=== PATIENT | male | born 1950 | race Caucasian/White ===

== ENCOUNTER 2019-04-07 12:16 | Emergency (ER) | payer MEDICARE ==
[2019-04-07 12:30] VITALS: BP 125/83
--- NOTE | 2019-04-07 12:35 | ED Physician Documentation ---
PD HPI SKIN - Stated complaint Stated Complaint: BACK WOUND - Chief complaint Chief Complaint: Wound - History obtained from History obtained from: Patient - History of Present Illness Timing - onset: Other (He is always had a painless lump on his back but never really bothered him. He saw his doctor for it, they were advised him to leave it alone. Over the last couple of weeks after scraping it on something its become increasingly painful and red. No fevers or chills.) Review of Systems Constitutional: denies: Fever, Chills GI: denies: Abdominal Pain, Nausea, Vomiting Musculoskeletal: denies: Neck pain, Back pain PD PAST MEDICAL HISTORY - Past Medical History Past Medical History: No Cardiovascular: None Respiratory: None Neuro: None Endocrine/Autoimmune: None GI: None : None HEENT: None Psych: None Musculoskeletal: None Derm: None - Past Surgical History Past Surgical History: No - Present Medications Home Medications: Ambulatory Orders Medication Instructions Recorded Confirmed Cephalexin [Keflex] 500 mg PO Q6H #40 capsule 04/07/19 - Allergies Allergies/Adverse Reactions: Allergies Allergy/AdvReac Type Severity Reaction Status Date / Time No Known Drug Allergies Allergy Verified 04/07/19 12:24 - Social History Does the pt smoke?: Yes Smoking Status: Current every day smoker Does the pt drink ETOH?: Yes ETOH Use: Beer Does the pt have substance abuse?: No - Immunizations Immunizations are current?: No Immunizations: TDAP >10years/unknown - POLST Patient has POLST: No PD ED PE NORMAL - Vitals Vital signs reviewed: Yes - General General: Alert and oriented X 3, No acute distress - Derm Derm: Other (He is a large sebaceous cyst with infection over the back, just to the left of the thoracic spine in the middle. There is mild surrounding cellulitis. The cyst is about 5 cm in diameter.) - Neuro Neuro: Alert and oriented X 3, Normal speech Results - Vitals Vitals: Vital Signs - 24 hr 04/07/19 12:19 Temperature 36.1 C L Heart Rate 56 L Respiratory 16 Rate Blood Pressure 125/83 H O2 Saturation 97 Oxygen O2 Source Room air Procedures - Abscess I&D (location) back sebaceous cysst Preparation: Alcohol, Lidocaine 1% Incision: Incised with scalpel, Purulent drainage, Loculations broken, Culture obtained, Other (Lenticular incision was made to keep it open. A lot of sebaceous material was removed, I was also able to get bits of the cyst itself, but I do not think I got all of it given that it was actively inflamed and quite large.). No: Packed Other: Pt tolerated well, Dressing applied, Antibiotic prescribed Departure - Departure Disposition: Home, Self Care Clinical Impression: Infected sebaceous cyst Condition: Good Record reviewed to determine appropriate education?: Yes Instructions: ED Abscess IandD Follow-Up: Samuel Spaulding MD [Provider Admit Priv/Credential] - Prescriptions: Cephalexin [Keflex] 500 mg PO Q6H #40 capsule Comments: As discussed, these tend to recur after a drainage procedure when they are infected. You can follow-up with the surgeon listed on this form for definitive excision after it is all healed up if there is a persistent lump. We are performing a wound culture, the results should be done in 48-72 hours. If antibiotic change is necessary we will call you. Return if worse in the meantime, especially if you develop increased pain, fevers, cannot keep down the medication. Otherwise follow-up with your physician in approximately 2-3 days.
== END 2019-04-07 13:02 | disposition home or self-care (01) ==
LOC: ED 12:16
DX: L72.3 Sebaceous cyst (principal); L02.212 Cutaneous abscess of back [any part, except buttock and flank]; F17.200 Nicotine dependence, unspecified, uncomplicated
CPT/HCPCS: 10060; 87070; 87205

== ENCOUNTER 2021-03-22 16:11 | Outpatient (CLI) | payer MEDICARE | END 2021-03-22 16:12 | disposition home or self-care (01) | LOC: RT 16:11 | PROVIDERS: ATTEND Surgery | DX: R00.9 Unspecified abnormalities of heart beat (principal); F17.200 Nicotine dependence, unspecified, uncomplicated | CPT/HCPCS: 93005 ==

== ENCOUNTER 2021-04-04 11:47 | Day surgery (SDC) | payer MEDICARE ==
[~2021-04-04 11:47] MED LIST: CEFAZOLIN SODIUM IN 0.9 % NACL 2 GM/100 ML BAG IV ONE
[2021-04-04] MEDS ORDERED: LACTATED RINGERS 1,000 ML IV ONE ×2 (11:55→15:01)
--- NOTE | 2021-04-04 12:43 | ANESTHESIA ---
Pre-Anesthesia VS, & Labs - Diagnosis Left Inguinal hernia - Procedure Left inguinal hernia repair with mesh Vital Signs: Temp Pulse Resp BP Pulse Ox 36.6 C 69 16 161/74 H 97 04/04/21 11:57 04/04/21 11:57 04/04/21 11:57 04/04/21 11:57 04/04/21 11:57 Height: 6 ft Weight (kg): 74 kg Body Mass Index: 22.1 BMI Classification: Healthy weight - NPO >8 hours Home Medications and Allergies Home Medications: Ambulatory Orders No Known Home Medications 03/27/21 No Known Home Medications 03/27/21 Allergies/Adverse Reactions: Allergies Allergy/AdvReac Type Severity Reaction Status Date / Time No Known Drug Allergies Allergy Verified 04/07/19 12:24 Anes History & Medical History - Anesthetic History Family history of Anesthesia Complications: Denies Family history of Malignant Hyperthermia: Denies - Medical History Cardiovascular: reports: None Pulmonary: reports: None Gastrointestinal: reports: GERD Urinary: reports: None Neuro: reports: None Musculoskeletal: reports: None Endocrine/Autoimmune: reports: None Blood Disorders: reports: None Skin: reports: None Smoking Status: Current every day smoker (10 cigarettes per day. Off and on for 30 years) Psychosocial: reports: Alcohol (Daily 2-3 beers per day), Cannabis History of Cancer?: No - Surgical History General: reports: Colonoscopy Orthopedic: Exam General: Alert, Oriented x3, Cooperative, No acute distress Dental: Poor dentition Mouth Openin Fingerbreadth Neck Mobility: Normal Mallampati classification: II Thyromental Distance: 4-6 cm Respiratory: Lungs clear, Normal breath sounds, No respiratory distress, No accessory muscle use Cardiovascular: Regular rate, Normal S1, Normal S2, No murmurs Mental/Cognitive Status: Alert/Oriented X3, Normal for patient Plan Anesthesia Type: General Consent for Procedure(s) Verified and Reviewed: Yes Code Status: Attempt Resuscitation ASA classification: 2-Mild systemic disease Is this case an emergency?: No
[2021-04-04] MEDS ORDERED: ONDANSETRON 4 MG/2 ML VIAL IVP PRN (12:45)
[2021-04-04] MEDS ORDERED: fentaNYL 100 MCG/2 ML VIAL IVP PRN (12:45)
[2021-04-04] MEDS ORDERED: ATROPINE ABBOJECT 1 MG/10 ML SYRINGE IVP PRN (12:45)
[2021-04-04] MEDS ORDERED: MORPHINE 2 MG/ML CARPUJECT IVP PRN (12:45)
[2021-04-04] MEDS ORDERED: NALOXONE 0.4 MG/ML VIAL IVP PRN (12:45)
[2021-04-04] MEDS ORDERED: HYDROmorphone 0.5 MG/0.5 ML SYRINGE IVP PRN (12:45)
[2021-04-04] MEDS ORDERED: BUPIVACAINE 0.25% PF 30 ML VIAL ONE (12:48)
[2021-04-04] MEDS ORDERED: LIDOCAINE 1% 50 ML MDV ONE (12:49)
[2021-04-04] MEDS ORDERED: LACTATED RINGERS 1,000 ML IV SCH (13:00)
[2021-04-04] MEDS ORDERED: MIDAZOLAM 2 MG/2 ML VIAL ONE (13:11)
[2021-04-04] MEDS ORDERED: fentaNYL 100 MCG/2 ML VIAL ONE (13:11)
[2021-04-04] MEDS ORDERED: PROPOFOL 500 MG/50 ML 500 MG/50 ML VIAL ONE (13:11)
[2021-04-04] MEDS ORDERED: BUPIVACAINE 0.25% PF 30 ML VIAL SUBQ ONE (14:01)
[2021-04-04] MEDS ORDERED: LIDOCAINE 1% 50 ML MDV SUBQ ONE (14:02)
[2021-04-04] MEDS ORDERED: HYDROcod/ACETAM 5/325 MG TABLET PO PRN (15:05)
--- NOTE | 2021-04-04 15:12 | OPERATIVE REPORT ---
Operative Report - General Procedure Date: 04/04/21 Planned Procedure: Open left inguinal hernia repair Pre-Op Diagnosis: Left inguinal hernia Procedure Performed: Open left inguinal hernia repair with mesh Post Op Diagnosis: Indirect inguinal hernia - Procedure Note Primary Surgeon: esther mendoza md Anesthesia Technique: Local, MAC Pathology: none. not sent Estimated Blood Loss (mL): 0 Drain/Tube Type: Other Indications: painful hernia bulge Findings: as above Complications: none - Other Other Information/Narrative: Patient was properly identified brought to the operating room and placed in supine position. Sequential compression devices were placed. Monitored anesthesia care was given. He was prepped and draped in a sterile fashion and given preoperative antibiotics. Local anesthetic was given throughout the procedure. A 5 cm incision was made in the direction of Slick's lines just cephalad of the pubic tubercle. Dissection proceeded with cutting current cautery. The superficial epigastric vein was identified clamped divided and tied with 3-0 Vicryl. Dissection proceeded down to the aponeurosis. The aponeurosis was opened in the direction of its fibers and extended to the external ring. Cord structures were mobilized and brought up. The nerves were carefully protected and preserved. Cord structures were mobilized and brought up. An indirect inguinal hernia was present. The hernia sac was mobilized off the cord structures and suture ligated with 2 O silk and further reduced. Preperitoneal fat was removed. The base was tied with 2 O vicryl. Polypropylene mesh was cut to size and with tails. The mesh was secured with multiple interrupted 0 Ethibond sutures. She was placed along the pubic tubercle, Oscar's ligament area and along the shelving border of Poupart's ligament. Sutures were placed medially along the abdominal wall musculature and internal oblique. The medial tail of the mesh was secured to the shelving border of Poupart's ligament with 3 interrupted 0 ethibond sutures recreating the internal ring of appropriate size. An additional suture was placed in the crotch of the mesh recreating an internal ring of appropriate size. Aponeurosis was closed with a running 2-0 Vicryl suture. The opposite was closed with interrupted 3-0 Vicryl suture. Buried interrupted subdermal 3-0 Vicryl sutures were then placed. And was closed with a running 4-0 Monocryl subcuticular suture. Dressing was applied. Patient was awakened and brought to recovery in good condition.
[2021-04-04 15:18] VITALS: BP 125/75
--- NOTE | 2021-04-04 16:35 | ANESTHESIA POST OP EVALUATION ---
Anesthesia Post Eval - Post Anesthesia Eval Vitals: Last Vital Signs Temp 36.0 C L 04/04/21 15:15 Pulse 52 L 04/04/21 15:15 Resp 19 04/04/21 15:15 BP 125/75 04/04/21 15:15 Pulse Ox 98 04/04/21 15:15 CV Function Including HR & BP: Stable Pain Control: Satisfactory Nausea & Vomiting: Negative Mental Status: Baseline Respiratory Status: Airway Patent Hydration Status: Satisfactory Anesthesia Complications: None
== END 2021-04-04 11:48 | disposition home or self-care (01) ==
LOC: SDS 11:47
PROVIDERS: ATTEND Surgery
DX: K40.90 Unilateral inguinal hernia, without obstruction or gangrene, not specified as recurrent (principal); I49.9 Cardiac arrhythmia, unspecified; F17.210 Nicotine dependence, cigarettes, uncomplicated
CPT/HCPCS: 49505; C1781; J0690; J7120

== ENCOUNTER 2021-06-24 15:15 | Outpatient (CLI) | payer MEDICARE | END 2021-06-24 23:59 | disposition home or self-care (01) | LOC: LAB 15:15 | PROVIDERS: ATTEND Emergency Medicine | DX: Z20.822 Contact with and (suspected) exposure to COVID-19 (principal) ==

== ENCOUNTER 2022-08-24 09:32 | Emergency (ER) | payer MEDICARE ==
--- NOTE | 2022-08-24 09:46 | ED Physician Documentation ---
PD HPI MALE - Stated complaint Stated Complaint: M GI - Chief complaint Chief Complaint: Abd Pain - History obtained from History obtained from: Patient - History of Present Illness Timing - onset: How many days ago (has noted some heistancy for few days and then unable to urinate since last night. Feeling quite full bladder and uncomfrtable.) Timing - details: Abrupt onset (he had just brief few days of heistancy and some feeling of incomplete emptying and then retention. No dysuria.) Associated symptoms: Unable to urinate. No: Dysuria, Discharge, Abdominal pain Similar symptoms before: Has not had sx before Recently seen: Not recently seen Review of Systems Constitutional: denies: Fever, Chills GI: denies: Nausea, Vomiting : reports: Hesitancy, Unable to Void. denies: Dysuria, Hematuria, Discharge Skin: denies: Rash PD PAST MEDICAL HISTORY - Past Medical History Cardiovascular: None Respiratory: None Neuro: None Endocrine/Autoimmune: None GI: GERD : None HEENT: None Psych: None Musculoskeletal: None Derm: None - Past Surgical History Past Surgical History: No General: Colonoscopy Ortho:  - Present Medications Home Medications: Ambulatory Orders Medication Instructions Recorded Confirmed Ciprofloxacin HCl [Cipro] 500 mg PO BID #20 tablet 08/24/22 Tamsulosin [Flomax] 0.4 mg PO DAILY #10 cap 08/24/22 - Allergies Allergies/Adverse Reactions: Allergies Allergy/AdvReac Type Severity Reaction Status Date / Time No Known Drug Allergies Allergy Verified 08/24/22 09:40 - Social History Does the pt smoke?: Yes Smoking Status: Current every day smoker (10 cigarettes per day. Off and on for 30 years) Does the pt drink ETOH?: Yes Does the pt have substance abuse?: No - Immunizations Immunizations are current?: No Immunizations: TDAP >10years/unknown - POLST Patient has POLST: No PD ED PE NORMAL - Vitals Vital signs reviewed: Yes - General General: Alert and oriented X 3, Well developed/nourished, Other (appears very uncomfortable with fullness in suprapubic area. ) - Abdomen Abdomen: Soft, Other (fullness and tender in bladder area c/w very full bladder. Upper abd not tender. Abd feeling much better after glasgow and drainage of about 1300 ml. ) Results - Vitals Vitals: Vital Signs - 24 hr 08/24/22 08/24/22 08/24/22 09:37 10:12 12:07 Temperature 36.3 C L Heart Rate 85 58 L 57 L Respiratory 18 16 16 Rate Blood Pressure 168/109 H 144/92 H 134/89 H O2 Saturation 97 98 95 Oxygen O2 Source Room air - Labs Labs: Laboratory Tests 08/24/22 08/24/22 08/24/22 09:50 09:58 09:58 WBC 12.5 H RBC 4.79 Hgb 15.5 Hct 45.9 MCV 95.8 H MCH 32.4 H MCHC 33.8 RDW 12.3 Plt Count 236 MPV 9.8 Neut # (Auto) 10.7 H Lymph # (Auto) 0.9 L Brule # (Auto) 0.8 Eos # (Auto) 0.0 Baso # (Auto) 0.0 Absolute Nucleated RBC 0.00 Nucleated RBC % 0.0 Sodium 131 L Potassium 4.0 Chloride 97 L Carbon Dioxide 22 Anion Gap 12.0 BUN 16 Creatinine 1.1 Estimated GFR (MDRD) 66 L Glucose 128 H Calcium 8.9 Total Bilirubin 1.0 AST 28 ALT 19 Alkaline Phosphatase 58 Total Protein 7.3 Albumin 4.3 Globulin 3.0 Albumin/Globulin Ratio 1.4 Lipase 26 Prostate Specific Ag Free PSA % Free PSA Calc Urine Color YELLOW Urine Clarity CLEAR Urine pH 6.0 Ur Specific [place] 1.015 Urine Protein NEGATIVE Urine Glucose (UA) NEGATIVE Urine Ketones NEGATIVE Urine Occult Blood MODERATE H Urine Nitrite NEGATIVE Urine Bilirubin NEGATIVE Urine Urobilinogen 0.2 (NORMAL) Ur Leukocyte Esterase NEGATIVE Urine RBC 0-5 Urine WBC 0-3 Ur Squamous Epith Cells NONE SEEN Urine Bacteria Rare Ur Microscopic Review INDICATED Urine Culture Comments NOT INDICATED 08/24/22 09:58 WBC RBC Hgb Hct MCV MCH MCHC RDW Plt Count MPV Neut # (Auto) Lymph # (Auto) Brule # (Auto) Eos # (Auto) Baso # (Auto) Absolute Nucleated RBC Nucleated RBC % Sodium Potassium Chloride Carbon Dioxide Anion Gap BUN Creatinine Estimated GFR (MDRD) Glucose Calcium Total Bilirubin AST ALT Alkaline Phosphatase Total Protein Albumin Globulin Albumin/Globulin Ratio Lipase Prostate Specific Ag 8.820 H Free PSA 2.000 % Free PSA Calc 23 L Urine Color Urine Clarity Urine pH Ur Specific [place] Urine Protein Urine Glucose (UA) Urine Ketones Urine Occult Blood Urine Nitrite Urine Bilirubin Urine Urobilinogen Ur Leukocyte Esterase Urine RBC Urine WBC Ur Squamous Epith Cells Urine Bacteria Ur Microscopic Review Urine Culture Comments PD Medical Decision Making - ED course Complexity details: reviewed results (he was very uncomfortable with full bladder but actually had more than expected with 1300 ml, so I presume he has had some partial retention and extended bladder leading up to this, and will need to be treated with glasgow to allow bladder decompression and muscles to unstretch. Also ? prostatitis. ), considered differential (He does not have history of prostate enlargement per se. He denies hesitancy or dribbling in the past but will have urgency at times. There is retention is fairly abrupt and new without signs of infection or medications that might cause it. He has an elevated PSA and WBC so consider prostatitis.), d/w patient Departure - Departure Disposition: 01 Home, Self Care Clinical Impression: Enlarged prostate, Acute urinary retention Condition: Stable Record reviewed to determine appropriate education?: Yes Instructions: ED Retention Urinary Male Follow-Up: Dasia Ramirez ARNP [Primary Care Provider] - Prescriptions: Ciprofloxacin HCl [Cipro] 500 mg PO BID #20 tablet Tamsulosin [Flomax] 0.4 mg PO DAILY #10 cap Comments: You were having acute urinary retention which currently is caused by enlargement of the prostate or sometimes by infection or certain medications. Since there is not an obvious bladder infection or medication cause, we will presume he have an enlarged prostate. Your white count on blood testing as well as a PSA are b oth elevated and this may be indicative of a prostate infection as well as inflammation. We can treat with an antibiotic as well as a medication to reduce prostate inflammation. I sent your prescriptions to [facility] in [place]. Follow-up with your primary care or the walk-in clinic in about 4 to 5 days. This should give time enough for the tamsulosin and ciprofloxacin medications to be impacting on your prostate inflammation and hopefully the Glasgow removal at that time will be subsequently able to urinate on your own. I be less likely to think it would work now taking the catheter out too soon. Discharge Date/Time: 08/24/22 12:30
[2022-08-24 10:04] LABS: BILIRUBIN,URINE NEGATIVE (NEGATIVE); GLUCOSE, URINE (UA) NEGATIVE (NEGATIVE); KETONES,URINE (UA) NEGATIVE (NEGATIVE); LEUKOCYTE ESTERASE, URINE NEGATIVE (NEGATIVE); NITRITE,URINE NEGATIVE (NEGATIVE); OCCULT BLOOD,URINE MODERATE (NEGATIVE); PROTEIN,URINE NEGATIVE (NEGATIVE); UROBILINOGEN,URINE 0.2 (NORMAL) E.U./dL (NORMAL)
[2022-08-24 10:04] LABS: BASOPHILS % (AUTO) 0.3 %; EOSINOPHILS % (AUTO) 0.2 %; HCT - HEMATOCRIT 45.9 % (42.0-52.0); HGB - HEMOGLOBIN 15.5 g/dL (14.0-18.0); LYMPHOCYTES # (AUTO) 0.9 10^3/uL (1.5-3.5); MEAN CORPUSCULAR HEMOGLOBIN 32.4 pg (27.0-31.0); MEAN CORPUSCULAR HGB CONC 33.8 g/dL (32.0-36.0); MEAN CORPUSCULAR VOLUME 95.8 fL (80.0-94.0); MEAN PLATELET VOLUME 9.8 fL (7.4-11.4); MONOCYTES # (AUTO) 0.8 10^3/uL (0.0-1.0); MONOCYTES % (AUTO) 6.4 %; NEUTROPHILS # (AUTO) 10.7 10^3/uL (1.5-6.6); NEUTROPHILS % (AUTO) 85.8 %; PLT - PLATELET COUNT 236 10^3/uL (130-450); RED BLOOD COUNT 4.79 10^6/uL (4.70-6.10); RED CELL DISTRIBUTION WIDTH 12.3 % (12.0-15.0); WHITE BLOOD COUNT 12.5 x10^3/uL (4.8-10.8)
[2022-08-24 10:18] LABS: ALBUMIN 4.3 g/dL (3.2-5.5); ALBUMIN/GLOBULIN RATIO 1.4 (1.0-2.2); CALCIUM 8.9 mg/dL (8.5-10.3); CREATININE 1.1 mg/dL (0.6-1.2); TOTAL PROTEIN 7.3 g/dL (6.7-8.2)
[2022-08-24 10:38] LABS: PSA TOTAL 8.82 ng/mL (0.000-2.000)
[2022-08-24 10:40] LABS: CLARITY,URINE CLEAR (CLEAR)
[2022-08-24 10:51] LABS: RBC,URINE 0-5 /HPF (0-5); WBC,URINE 0-3 /HPF (0-3)
[2022-08-24 10:52] LABS: BACTERIA,URINE Rare /HPF (None Seen); SQUAMOUS EPITHELIAL CELL,UR NONE SEEN (<= Few)
[2022-08-24] MEDS ORDERED: TAMSULOSIN 0.4 MG CAPSULE PO STA (11:01)
[2022-08-24] MEDS ORDERED: CIPROFLOXACIN 250 MG TABLET PO STA (11:31)
[2022-08-24 12:08] VITALS: BP 134/89
== END 2022-08-24 12:30 | disposition home or self-care (01) ==
LOC: ED 09:32
DX: N40.1 Benign prostatic hyperplasia with lower urinary tract symptoms (principal); R33.8 Other retention of urine; R97.20 Elevated prostate specific antigen [PSA]; D72.828 Other elevated white blood cell count; F17.200 Nicotine dependence, unspecified, uncomplicated
CPT/HCPCS: 36415; 80053; 81001; 83690; 84153; 84154; 85025; 99283; A9270; 81003; 87086

== ENCOUNTER 2023-02-07 11:01 | Outpatient (CLI) | payer MEDICARE | END 2023-02-07 11:02 | disposition home or self-care (01) | LOC: LAB.S 11:01 | PROVIDERS: ATTEND Physician Assistant Medical | DX: Z87.898 Personal history of other specified conditions (principal) | CPT/HCPCS: 36415; 84153 ==

== ENCOUNTER 2023-09-07 05:58 | Emergency (ER) | payer MEDICARE ==
--- NOTE | 2023-09-07 06:02 | ED Physician Documentation ---
PD HPI MALE - Stated complaint Stated Complaint: MALGE - History obtained from History obtained from: Patient - Additional information Additional information: HPI from patient. Patient c/o urge to urinate with minimal UO since 6 pm yesterday associated with increasing suprapubic pain/pressure. Has had similar symptoms once before; per patient's description, was treated with glasgow catheter. He describes outpatient urology follow-up but unclear (per patient's description) if etiology was determined. Denies fever, back pain , abdominal pain aside from suprapubic fullness and discomfort Review of Systems Constitutional: denies: Fever, Chills, Sweats GI: denies: Abdominal Pain (suprapubic pain but no abdominal pain per se), Nausea, Vomiting : reports: Unable to Void. denies: Dysuria, Frequency Musculoskeletal: denies: Back pain PD PAST MEDICAL HISTORY - Past Medical History Cardiovascular: None Respiratory: None Neuro: None Endocrine/Autoimmune: None GI: GERD : None HEENT: None Psych: None Musculoskeletal: None Derm: None - Past Surgical History Past Surgical History: No General: Colonoscopy - Present Medications Home Medications: Ambulatory Orders Medication Instructions Recorded Confirmed Tamsulosin [Flomax] 0.4 mg PO DAILY #30 cap 09/07/23 - Allergies Allergies/Adverse Reactions: Allergies Allergy/AdvReac Type Severity Reaction Status Date / Time No Known Drug Allergies Allergy Verified 08/24/22 09:40 - Social History Does the pt smoke?: Yes Smoking Status: Current every day smoker (10 cigarettes per day. Off and on for 30 years) Does the pt drink ETOH?: Yes Does the pt have substance abuse?: No - Immunizations Immunizations are current?: No Immunizations: TDAP >10years/unknown - POLST Patient has POLST: No PD ED PE NORMAL - Vitals Vital signs reviewed: Yes - General General: Alert and oriented X 3, Well developed/nourished, Other (pacing in room, appears to be in painful discomofort) - Abdomen Abdomen: Normal bowel sounds, Soft, Non tender, Non distended, Other (suprapubic fullness and TTP) - Back Back: No CVA TTP Results - Vitals Vitals: Vital Signs - 24 hr 09/07/23 06:07 Temperature 36.5 C Heart Rate 82 Respiratory 16 Rate Blood Pressure 140/94 H O2 Saturation 94 Oxygen O2 Source Room air - Labs Labs: Laboratory Tests 09/07/23 06:20 Urine Color YELLOW Urine Clarity CLEAR Urine pH 6.0 Ur Specific [place] 1.010 Urine Protein NEGATIVE Urine Glucose (UA) NEGATIVE Urine Ketones NEGATIVE Urine Occult Blood SMALL H Urine Nitrite NEGATIVE Urine Bilirubin NEGATIVE Urine Urobilinogen 0.2 (NORMAL) Ur Leukocyte Esterase NEGATIVE Urine RBC 0-5 Urine WBC 0-3 Ur Squamous Epith Cells NONE SEEN Urine Bacteria Rare Ur Microscopic Review INDICATED Urine Culture Comments NOT INDICATED PD Medical Decision Making - ED course Complexity details: reviewed results, re-evaluated patient, considered differential, d/w patient ED course: HPI c/w urinary retention. I performed brief and limited bedside US which revealed significant urinary bladder distention. ED RN was able to easily pass/insert glasgow catheter with rapid return of 1500cc clear yellow urine with concomitant resolution of symptoms. Patient reported resolution of discomfort with this intervention. No concerning findings on UA (small occult blood but no abnormalities, including RBC, on microscopy). Results d/w patient, return precautions reviewed, and advised of need for f/u within 7-10 for removal of glasgow catheter and reevaluation. Given 0.4mg tamsulosin in ED with rx for one- month supply e-prescribed to patient's pharmacy of choice. Departure - Departure Disposition: 01 Home, Self Care Clinical Impression: Urinary retention Condition: Good Instructions: ED Catheter Care Glasgow, ED Retention Urinary Male Follow-Up: Paul Castellano MD [Provider Admit Priv/Credential] - Prescriptions: Tamsulosin [Flomax] 0.4 mg PO DAILY #30 cap Comments: I have electronically submitted a prescription for tamsulosin to the [facility] in [place]; this medication can help improve urine flow if the cause of obstruction is due to an enlarged prostate. As we discussed, you need to follow-up for removal of the Glasgow catheter within 7-10 days. If you have a urologist you can follow-up with them. Alternatively you can follow-up with your primary care provider. Other options, as we discussed, would be a walk-in clinic or urgent care center. Forms: PCP List Discharge Date/Time: 09/07/23 07:04
[2023-09-07 06:19] VITALS: BP 140/94; O2SAT 94
[2023-09-07 06:41] LABS: BILIRUBIN,URINE NEGATIVE (NEGATIVE); GLUCOSE, URINE (UA) NEGATIVE (NEGATIVE); KETONES,URINE (UA) NEGATIVE (NEGATIVE); LEUKOCYTE ESTERASE, URINE NEGATIVE (NEGATIVE); NITRITE,URINE NEGATIVE (NEGATIVE); OCCULT BLOOD,URINE SMALL (NEGATIVE); PROTEIN,URINE NEGATIVE (NEGATIVE); UROBILINOGEN,URINE 0.2 (NORMAL) E.U./dL (NORMAL)
[2023-09-07] MEDS: TAMSULOSIN 0.4 MG CAPSULE PO STA (06:41)
[2023-09-07 06:42] LABS: CLARITY,URINE CLEAR (CLEAR)
[2023-09-07 06:50] LABS: BACTERIA,URINE Rare /HPF (None Seen); RBC,URINE 0-5 /HPF (0-5); SQUAMOUS EPITHELIAL CELL,UR NONE SEEN (<= Few); WBC,URINE 0-3 /HPF (0-3)
== END 2023-09-07 07:04 | disposition home or self-care (01) ==
LOC: ED 05:58
DX: R33.9 Retention of urine, unspecified (principal); F17.210 Nicotine dependence, cigarettes, uncomplicated; Z79.899 Other long term (current) drug therapy
CPT/HCPCS: 51702; 81001; 99283; A9270; 81003; 87086

== ENCOUNTER 2023-09-16 15:11 | Emergency (ER) | payer MEDICARE ==
--- NOTE | 2023-09-16 17:29 | ED Physician Documentation ---
PD HPI MALE - Stated complaint Stated Complaint: - Chief complaint Chief Complaint: Abd Pain - History obtained from History obtained from: Patient - Additional information Additional information: The patient comes to the emergency department chief complaint of blood in his Hayes catheter bag. The patient has history of prostatic hypertrophy and had a catheter placed several days. He states he has had to have this done previously for urinary retention and states that he has been doing fine with the catheter this time until he noticed some blood clots in his bag this morning. Patient states he just keeps feeling like he has to urinate constantly. He denies any abdominal pain or fever. He states that he has not noticed any more clots for the rest of the day and has had some reddish tinged urine. Patient states he has a urology appointment coming up with couple and he will be seen at [facility] for this. Patient denies any chills. He would like to keep the catheter in until he sees the urologist. No other complaints at this time. He is not on any anticoagulants. PD PAST MEDICAL HISTORY - Past Medical History Past Medical History: Yes Cardiovascular: None Respiratory: None Neuro: None Endocrine/Autoimmune: None GI: GERD : None HEENT: None Psych: None Musculoskeletal: None Derm: None - Past Surgical History Past Surgical History: No General: Colonoscopy - Present Medications Home Medications: Ambulatory Orders Medication Instructions Recorded Confirmed Tamsulosin [Flomax] 0.4 mg PO DAILY #30 cap 09/07/23 Sulfamethox/Trimeth 800/160 1 each PO BID #14 tablet 09/16/23 [Bactrim Ds 800/160] - Allergies Allergies/Adverse Reactions: Allergies Allergy/AdvReac Type Severity Reaction Status Date / Time No Known Drug Allergies Allergy Verified 09/16/23 15:25 - Social History Does the pt smoke?: Yes Smoking Status: Current every day smoker Does the pt drink ETOH?: Yes Does the pt have substance abuse?: No - Immunizations Immunizations are current?: No Immunizations: TDAP >10years/unknown - POLST Patient has POLST: No PD ED PE NORMAL - Vitals Vital signs reviewed: Yes - General General: Alert and oriented X 3, No acute distress, Well developed/nourished - HEENT HEENT: Atraumatic, PERRL, EOMI, Moist mucous membranes - Neck Neck: Supple, no meningeal sign - Respiratory Respiratory: No respiratory distress - Abdomen Abdomen: Soft, Non distended, Other (Mild suprapubic tenderness, no rebound or guarding) - Derm Derm: Normal color, Warm and dry, No rash - Extremities Extremities: No deformity - Neuro Neuro: Alert and oriented X 3 - Psych Psych: Normal mood, Normal affect Results - Vitals Vitals: Oxygen O2 Source Room air - Labs Labs: Microbiology 09/16/23 18:10 Urine Culture - Preliminary Urine,Clean Catch CULTURE IN PROGRESS. RESULTS TO FOLLOW. Laboratory Tests 09/16/23 18:10 Urine Color RED/BLOODY Urine Clarity CLOUDY Urine pH 7.5 Ur Specific [place] 1.015 Urine Protein 100 H Urine Glucose (UA) NEGATIVE Urine Ketones NEGATIVE Urine Occult Blood LARGE H Urine Nitrite POSITIVE H Urine Bilirubin NEGATIVE Urine Urobilinogen 1 (NORMAL) Ur Leukocyte Esterase LARGE H Urine RBC TNTC H Urine WBC >25 H Ur Squamous Epith Cells NONE SEEN Urine Bacteria Few Ur Microscopic Review INDICATED Urine Culture Comments INDICATED PD Medical Decision Making - ED course Complexity details: reviewed results, re-evaluated patient, considered differential, d/w patient ED course: Urinalysis was sent, and found to be positive for infection. He was started on abx, and given a prescription for the same. He is instructed to f/u with his urologist, as scheduled. Departure - Departure Disposition: 01 Home, Self Care Clinical Impression: UTI (urinary tract infection) Qualifiers: Urinary tract infection type: acute cystitis Hematuria presence: with hematuria Qualified Code(s): N30.01 - Acute cystitis with hematuria Condition: Stable Instructions: ED UTI Cystitis Male Prescriptions: Sulfamethox/Trimeth 800/160 [Bactrim Ds 800/160] 1 each PO BID #14 tablet Comments: Your urinalysis shows signs of urinary tract infection which is most likely why you keep feeling like you need to pee even though you have a catheter in place. This is also most likely the reason for the blood in your urine since you have not had any trauma. You have been started on an antibiotic for this tonight, and the Prescription for the remainder has been electronically transmitted to the [facility] pharmacy in [place]. Please pick this up in the morning and take your next dose then. Please take all the antibiotics until the course is complete. Please follow-up with your urologist as scheduled. Forms: PCP List Discharge Date/Time: 09/16/23 19:14
[2023-09-16 17:56] VITALS: BP 138/105; O2SAT 94
[2023-09-16 18:30] LABS: BILIRUBIN,URINE NEGATIVE (NEGATIVE); GLUCOSE, URINE (UA) NEGATIVE (NEGATIVE); KETONES,URINE (UA) NEGATIVE (NEGATIVE); LEUKOCYTE ESTERASE, URINE LARGE (NEGATIVE); NITRITE,URINE POSITIVE (NEGATIVE); OCCULT BLOOD,URINE LARGE (NEGATIVE); PH,URINE 7.5 PH (5.0-7.5); PROTEIN,URINE 100 mg/dL (NEGATIVE); UROBILINOGEN,URINE 1 (NORMAL) E.U./dL (NORMAL)
[2023-09-16 18:31] LABS: CLARITY,URINE CLOUDY (CLEAR)
[2023-09-16 18:50] LABS: BACTERIA,URINE Few /HPF (None Seen); RBC,URINE TNTC /HPF (0-5); SQUAMOUS EPITHELIAL CELL,UR NONE SEEN (<= Few); WBC,URINE >25 /HPF (0-3)
[2023-09-16] MEDS: SULFAMETH/TRIMETH DS 800/160 MG TABLET PO STA (18:57)
--- NOTE | 2023-09-19 15:21 | ED Physician Documentation ---
ED Addendum - Addendum Addendum: 09/19/23 15:20 The patient's urine culture came back showing Aubrie Deshpande. He had been discharged on Bactrim. It does not tell us sensitivities to that so presumably not on the spectrum of effectiveness. We can change to ciprofloxacin 250 mg twice daily. You will be sent to [facility] in [place]. Will have the nurses call.
== END 2023-09-16 19:14 | disposition home or self-care (01) ==
LOC: ED 15:11
DX: N30.01 Acute cystitis with hematuria (principal); N40.0 Benign prostatic hyperplasia without lower urinary tract symptoms; F17.200 Nicotine dependence, unspecified, uncomplicated
CPT/HCPCS: 81001; 87077; 87086; 87181; 99283; A9270; 81003

== ENCOUNTER 2023-09-17 09:00 | Outpatient (CLI) | payer MEDICARE ==
[2023-09-17 14:23] LABS: BASOPHILS # (AUTO) 0.1 10^3/uL (0.0-0.1); BASOPHILS % (AUTO) 0.4 %; EOSINOPHILS # (AUTO) 0.1 10^3/uL (0.0-0.7); EOSINOPHILS % (AUTO) 0.6 %; HCT - HEMATOCRIT 44.7 % (42.0-52.0); HGB - HEMOGLOBIN 14.7 g/dL (14.0-18.0); LYMPHOCYTES # (AUTO) 1.1 10^3/uL (1.5-3.5); LYMPHOCYTES % (AUTO) 7.2 %; MEAN CORPUSCULAR HEMOGLOBIN 32.3 pg (27.0-31.0); MEAN CORPUSCULAR HGB CONC 32.9 g/dL (32.0-36.0); MEAN CORPUSCULAR VOLUME 98.2 fL (80.0-94.0); MEAN PLATELET VOLUME 10.1 fL (7.4-11.4); MONOCYTES # (AUTO) 1.1 10^3/uL (0.0-1.0); MONOCYTES % (AUTO) 7.1 %; NEUTROPHILS % (AUTO) 84.3 %; PLT - PLATELET COUNT 298 10^3/uL (130-450); RED BLOOD COUNT 4.55 10^6/uL (4.70-6.10); RED CELL DISTRIBUTION WIDTH 12.8 % (12.0-15.0); WHITE BLOOD COUNT 15.5 x10^3/uL (4.8-10.8)
[2023-09-17 16:02] LABS: ALBUMIN 4.1 g/dL (3.2-5.5); ALBUMIN/GLOBULIN RATIO 1.4 (1.0-2.2); ALKALINE PHOSPHATASE 63 IU/L (42-121); ALT ALANINE AMINOTRANSFERASE 15 IU/L (10-60); AST ASPARTATE AMINOTRANSFERASE 18 IU/L (10-42); BILIRUBIN,TOTAL 0.9 mg/dL (0.2-1.0); BUN - BLOOD UREA NITROGEN 21 mg/dL (6-20); CALCIUM 9.4 mg/dL (8.5-10.3); CARBON DIOXIDE - CO2 29 mmol/L (21-32); CHLORIDE 102 mmol/L (101-111); CHOL/HDL RATIO 2.7 (<5.0); CHOLESTEROL 198 mg/dL; CREATININE 1.2 mg/dL (0.6-1.3); GFR - MDRD 59 (>89); GLUCOSE 110 mg/dL (74-104); HDL CHOLESTEROL 73 mg/dL; LDL CHOLESTEROL,CALCULATED 102 mg/dL; LDL/HDL RATIO 1.4 (<3.6); POTASSIUM 4.2 mmol/L (3.5-4.5); SODIUM 136 mmol/L (135-145); TOTAL PROTEIN 7.1 g/dL (6.4-8.9); TRIGLYCERIDES 115 mg/dL (48-352); VLDL CHOLESTEROL 23 mg/dL
[2023-09-17 16:10] LABS: THYROID STIMULATING HORMONE 1.09 uIU/mL (0.34-5.60)
== END 2023-09-17 09:01 | disposition home or self-care (01) ==
LOC: LAB.S 09:00
PROVIDERS: ATTEND Registered Nurse
DX: N40.1 Benign prostatic hyperplasia with lower urinary tract symptoms (principal); Z13.228 Encounter for screening for other metabolic disorders; Z13.220 Encounter for screening for lipoid disorders; Z13.29 Encounter for screening for other suspected endocrine disorder; Z13.0 Encounter for screening for diseases of the blood and blood-forming organs and certain disorders involving the immune mechanism
CPT/HCPCS: 36415; 80053; 80061; 83721; 84153; 84443; 85025

== ENCOUNTER 2023-10-01 08:00 | Outpatient (CLI) | payer MEDICARE ==
[2023-10-01 16:13] LABS: BILIRUBIN,URINE NEGATIVE (NEGATIVE); GLUCOSE, URINE (UA) NEGATIVE (NEGATIVE); KETONES,URINE (UA) NEGATIVE (NEGATIVE); LEUKOCYTE ESTERASE, URINE NEGATIVE (NEGATIVE); NITRITE,URINE NEGATIVE (NEGATIVE); OCCULT BLOOD,URINE MODERATE (NEGATIVE); PROTEIN,URINE NEGATIVE (NEGATIVE); UROBILINOGEN,URINE 0.2 (NORMAL) E.U./dL (NORMAL)
[2023-10-01 16:50] LABS: BACTERIA,URINE None Seen /HPF (None Seen); CLARITY,URINE CLEAR (CLEAR); SQUAMOUS EPITHELIAL CELL,UR FEW Squamous (<= Few); WBC,URINE 0-3 /HPF (0-3); YEAST,URINE PRESENT
== END 2023-10-01 23:59 | disposition home or self-care (01) ==
LOC: LAB 08:00
PROVIDERS: ATTEND Urology
DX: R33.9 Retention of urine, unspecified (principal)
CPT/HCPCS: 81001; 87086

== ENCOUNTER 2023-11-10 10:49 | Outpatient (CLI) | payer MEDICARE | END 2023-11-10 10:50 | disposition home or self-care (01) | LOC: LAB.S 10:49 | PROVIDERS: ATTEND Urology | DX: R97.20 Elevated prostate specific antigen [PSA] (principal) | CPT/HCPCS: 36415; 84153 ==

== ENCOUNTER 2023-12-16 09:24 | Outpatient (CLI) | payer MEDICARE | END 2023-12-16 09:25 | disposition home or self-care (01) | LOC: LAB.S 09:24 | PROVIDERS: ATTEND Urology | DX: R97.20 Elevated prostate specific antigen [PSA] (principal) | CPT/HCPCS: 36415; 84153 ==

== ENCOUNTER 2023-12-27 10:00 | Outpatient (CLI) | payer MEDICARE ==
[2023-12-27 10:26] LABS: CREATININE 1.2 mg/dL (0.6-1.3)
== END 2023-12-27 10:01 | disposition home or self-care (01) ==
LOC: LAB 10:00
PROVIDERS: ATTEND Urology
DX: R97.20 Elevated prostate specific antigen [PSA] (principal)
CPT/HCPCS: 36415; 82565

== ENCOUNTER 2023-12-27 10:01 | Outpatient (CLI) | payer MEDICARE ==
[~2023-12-27 10:01] MED LIST changes: -CEFAZOLIN SODIUM IN 0.9 % NACL 2 GM/100 ML BAG IV ONE; +GADOTERATE MEGLUMINE 10 MMOL/20 ML VIAL ONE
[2023-12-27] MEDS: GADOTERATE MEGLUMINE 10 MMOL/20 ML VIAL IVP ONE (11:03)
--- NOTE | 2023-12-29 09:21 | MRI Report ---
PROCEDURE: Pelvis W/WO INDICATIONS: ELEVATED PSA CONTRAST: CLARISCAN 15.4 ML TECHNIQUE: Coronal ultra fast SE, axial T1 FSE with fat saturation, 3-plane nonbreath-hold T2 FSE. After the ad ministration of contrast, dynamic axial, delayed axial and coronal ultra fast GE or 2-D spoiled GE wi th fat saturation through the pelvis. Optional diffusion weighted imaging and ADC may be performed. COMPARISON: None. FINDINGS: Image quality: Diffusion weighted and dynamic contrast enhanced images are diagnostic. Prostate: Gland size is 4.9 x 4.2 x 5.1 cm; ellipsoid gland volume is 55 mL. PSA Density: 0.14 Transitional zone heterogenous nodules are present, either well encapsulated or mostly encapsulated, compatible with PI-RADS 1 or 2 likely BPH nodules. These findings can obscure small cancers. Suspected extruded BPH nodule is seen at the right apex anteriorly. Genitourinary system: Underdistended and trabeculated bladder, not well evaluated. Trabeculations ma y be from chronic obstruction. Bowel and peritoneum: No bowel obstruction or pathologic ascites Nodes and vessels: No pathologic lymph nodes by size criteria. No aneurysmal vessel identified Soft tissues: Unremarkable Bones: No acute or suspicious osseous finding. IMPRESSION: No PI RADS 3, 4, or 5 lesion identified. The primary finding in the prostate is BPH. Suspected extrud ed nodule is seen at the right apex anteriorly. Consider continued PSA and possible imaging surveilla nce. Reviewed by: Nic Rios MD on 12/29/2023 9:20 AM PDT Approved by: Nic Rios MD on 12/29/2023 9:20 AM PDT Station ID: [id number]
== END 2023-12-27 10:02 | disposition home or self-care (01) ==
LOC: DI 10:01
PROVIDERS: ATTEND Urology
DX: R97.20 Elevated prostate specific antigen [PSA] (principal); N40.0 Benign prostatic hyperplasia without lower urinary tract symptoms
CPT/HCPCS: 36415; 72197; 82565; A9575

== ENCOUNTER 2024-01-17 08:51 | Emergency (ER) | payer MEDICARE ==
--- NOTE | 2024-01-17 09:03 | ED Physician Documentation ---
PD HPI MALE - Stated complaint Stated Complaint: - History obtained from History obtained from: Patient - History of Present Illness Timing - onset: Yesterday (has had less urination and hesitancy for days to weeks. On FLomax. Unable to urinate since last evening and feeling quite uncomfortable full bladder.) PD PAST MEDICAL HISTORY - Past Medical History Cardiovascular: None Respiratory: None Neuro: None Endocrine/Autoimmune: None GI: GERD : None HEENT: None Psych: None Musculoskeletal: None Derm: None - Past Surgical History Past Surgical History: No General: Colonoscopy - Present Medications Home Medications: Ambulatory Orders Medication Instructions Recorded Confirmed Tamsulosin [Flomax] 0.4 mg PO DAILY #30 cap 09/07/23 Sulfamethox/Trimeth 800/160 1 each PO BID #14 tablet 09/16/23 [Bactrim Ds 800/160] Ciprofloxacin [Cipro] 250 mg PO BID #20 tablet 09/19/23 - Allergies Allergies/Adverse Reactions: Allergies Allergy/AdvReac Type Severity Reaction Status Date / Time No Known Drug Allergies Allergy Verified 01/17/24 09:06 - Social History Does the pt smoke?: Yes Smoking Status: Current every day smoker Does the pt drink ETOH?: Yes Does the pt have substance abuse?: No - Immunizations Immunizations are current?: No Immunizations: TDAP >10years/unknown - POLST Patient has POLST: No PD ED PE NORMAL - Vitals Vital signs reviewed: Yes - General General: Alert and oriented X 3, Well developed/nourished - Abdomen Abdomen: Other (suprapubic fullness rounded in area of bladder c/w very full bladder. ) Results - Vitals Vitals: Oxygen O2 Source Room air - Labs Labs: Laboratory Tests 01/17/24 09:15 Urine Color YELLOW Urine Clarity CLEAR Urine pH 6.0 Ur Specific [place] 1.010 Urine Protein NEGATIVE Urine Glucose (UA) NEGATIVE Urine Ketones NEGATIVE Urine Occult Blood TRACE-LYSE Urine Nitrite NEGATIVE Urine Bilirubin NEGATIVE Urine Urobilinogen 0.2 (NORMAL) Ur Leukocyte Esterase NEGATIVE Ur Microscopic Review NOT INDICATED Urine Culture Comments NOT INDICATED PD Medical Decision Making - ED course Complexity details: considered differential (unable to urinate with clinically a very full bladder. Hayes placed with Urojet lido by nursing with 1200 ml out.Pt feeling much better. No signs of UTI on UA. ), d/w patient Departure - Departure Disposition: Home, Self Care Clinical Impression: Acute on chronic urinary retention Condition: Stable Record reviewed to determine appropriate education?: Yes Instructions: ED Catheter Care Hayes Follow-Up: Paul Castellano MD [Provider Admit Priv/Credential] - Comments: You did have quite a large amount of urine in the bladder. This will have overstretched the muscles and they will need time to come back to more normal shape and tone. Typically we would leave the catheter in for several days to week or so. Call urology for follow-up appointment for next week. Continue with your Flomax and other usual medicines. Tylenol if needed for pains. Your urine does not show any signs of infection. I do not see an indication for antibiotics at this time. Discharge Date/Time: 01/17/24 10:24
[2024-01-17] MEDS: LIDOCAINE 2% URO-JET 5 ML SYRINGE UR STA (09:16)
[2024-01-17 09:45] LABS: BILIRUBIN,URINE NEGATIVE (NEGATIVE); GLUCOSE, URINE (UA) NEGATIVE (NEGATIVE); KETONES,URINE (UA) NEGATIVE (NEGATIVE); LEUKOCYTE ESTERASE, URINE NEGATIVE (NEGATIVE); NITRITE,URINE NEGATIVE (NEGATIVE); OCCULT BLOOD,URINE TRACE-LYSE (NEGATIVE); PROTEIN,URINE NEGATIVE (NEGATIVE); UROBILINOGEN,URINE 0.2 (NORMAL) E.U./dL (NORMAL)
[2024-01-17 09:58] LABS: CLARITY,URINE CLEAR (CLEAR)
[2024-01-17 10:11] VITALS: BP 140/84; O2SAT 98
== END 2024-01-17 10:24 | disposition home or self-care (01) ==
LOC: ED 08:51
DX: R33.9 Retention of urine, unspecified (principal); F17.200 Nicotine dependence, unspecified, uncomplicated
CPT/HCPCS: 51702; 81001; 81003; 87086; 99283; 99284

== ENCOUNTER 2024-04-16 23:26 | Emergency (ER) | payer MEDICARE ==
--- NOTE | 2024-04-17 00:01 | ED Physician Documentation ---
PD HPI MALE - Stated complaint Stated Complaint: - History obtained from History obtained from: Patient - Additional information Additional information: 74-year-old male presents for approximately 3 hours of urinary retention. Patient states that this has happened several times in the past, he has been followed by urology. He states that he had been compliant with his Flomax up until 1 week ago because "everything was going so well". Patient states that he needs a Hayes catheter. Review of Systems Constitutional: denies: Fever, Chills GI: denies: Abdominal Pain, Nausea, Vomiting, Constipation, Diarrhea : reports: Unable to Void. denies: Dysuria, Frequency, Hesitancy PD PAST MEDICAL HISTORY - Past Medical History Cardiovascular: None Respiratory: None Neuro: None Endocrine/Autoimmune: None GI: GERD : None HEENT: None Psych: None Musculoskeletal: None Derm: None - Past Surgical History Past Surgical History: No General: Colonoscopy - Present Medications Home Medications: Ambulatory Orders Medication Instructions Recorded Confirmed Tamsulosin [Flomax] 0.4 mg PO DAILY #30 cap 09/07/23 Sulfamethox/Trimeth 800/160 1 each PO BID #14 tablet 09/16/23 [Bactrim Ds 800/160] Ciprofloxacin [Cipro] 250 mg PO BID #20 tablet 09/19/23 - Allergies Allergies/Adverse Reactions: Allergies Allergy/AdvReac Type Severity Reaction Status Date / Time No Known Drug Allergies Allergy Verified 04/17/24 00:16 - Social History Does the pt smoke?: Yes Smoking Status: Current every day smoker Does the pt drink ETOH?: Yes Does the pt have substance abuse?: No - Immunizations Immunizations are current?: No Immunizations: TDAP >10years/unknown - POLST Patient has POLST: No PD ED PE NORMAL - Vitals Vital signs reviewed: Yes - General General: Alert and oriented X 3, Well developed/nourished, Other (Uncomfortable, in pain) - Cardiac Cardiac: RRR, Strong equal pulses - Respiratory Respiratory: No respiratory distress, Clear bilaterally - Abdomen Abdomen: Soft, Other (Suprapubic fullness) - Derm Derm: Normal color, Warm and dry, No rash - Extremities Extremities: No deformity, No tenderness to palpate, Normal ROM s pain, No edema - Neuro Neuro: Alert and oriented X 3, 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 Hayes catheter placed with drainage of clear yellow urine. Patient reported resolution of symptoms after placement of Hayes catheter. Patient was advised that he should resume his Flomax and not stop unless otherwise directed to by urology. Urology follow-up advised. Patient states that he has plenty of Flomax at home and does not need a refill. Departure - Departure Disposition: 01 Home, Self Care Clinical Impression: Acute urinary retention Condition: Stable Instructions: ED Catheter Care Hayes Comments: Restart taking your Flomax as previously prescribed by your urologist. Follow- up with your urologist in the office. Keep the Hayes catheter in place until urology specifies otherwise. Forms: PCP List Discharge Date/Time: 04/17/24 00:51
[2024-04-17 00:03] VITALS: O2SAT 98
[2024-04-17 00:52] VITALS: BP 122/87
== END 2024-04-17 00:51 | disposition home or self-care (01) ==
LOC: ED 23:26
DX: R33.9 Retention of urine, unspecified (principal); F17.200 Nicotine dependence, unspecified, uncomplicated; Z79.899 Other long term (current) drug therapy
CPT/HCPCS: 51702; 99283